=== PATIENT | male | born 1975 | race Hispanic/Latino ===

== ENCOUNTER 2020-05-26 04:04 | Emergency (ER) | payer SELFPAY ==
[~2020-05-26 04:04] MED LIST: ASPI-1026 PO; FENO145T PO; LISI40TA4 PO; MULT-1203 PO; SITA1TAB6 PO
[2020-05-26 05:26] LABS: BASOPHILS % (AUTO) 0.5 % (0.0-5.0); EOSINOPHILS % (AUTO) 1.1 % (0.0-8.0); HEMATOCRIT 42.4 % (42-54); LYMPHOCYTES % (AUTO) 18.2 % (21.0-51.0); MEAN CORPUSCULAR HEMOGLOBIN 29.1 pg (27.0-33.0); MEAN CORPUSCULAR HGB CONC 34.4 g/dL (32.0-36.0); MEAN CORPUSCULAR VOLUME 84.5 fL (79-99); MONOCYTES % (AUTO) 6.7 % (3.0-13.0); NEUTROPHILS % (AUTO) 72.8 % (40.0-77.0); PLATELET COUNT (AUTO) 277 K/uL (130-400); RED BLOOD CELL COUNT(AUTO) 5.02 MIL/uL (4.50-6.20); RED CELL DISTRIBUTION WIDTH 12.5 % (11.0-15.5); WHITE BLOOD COUNT (AUTO) 11.1 K/uL (4.8-10.8)
[2020-05-26 05:26] LABS: APPEARANCE,URINE Clear (CLEAR); BILIRUBIN,URINE Negative (NEGATIVE); COLOR,URINE Yellow (YELLOW); GLUCOSE, URINE (UA) Negative (NEGATIVE); KETONES,URINE Trace mg/dL (NEGATIVE); LEUKOCYTE ESTERASE ,URINE Negative (NEGATIVE); NITRATE,URINE Negative (NEGATIVE); OCCULT BLOOD,URINE Negative (NEGATIVE); PH,URINE 5.5 (5.0-8.0); PROTEIN,URINE Trace mg/dL (NEGATIVE)
[2020-05-26 05:35] LABS: CREATININE 0.8 mg/dL (0.5-1.5); POTASSIUM 3.2 mmol/L (3.5-5.1)
[2020-05-26] MEDS ORDERED: ONDANSETRON HCL 4 MG/2 ML VIAL ONE (05:36)
[2020-05-26] MEDS ORDERED: SODIUM CHLORIDE 0.9% 1000ML 1,000 ML IV ONE (05:37)
[2020-05-26 05:39] LABS: ALBUMIN 4.2 g/dL (3.5-5.0); BILIRUBIN,DIRECT 0.1 mg/dL (0.0-0.3); BILIRUBIN,TOTAL 0.2 mg/dL (0.2-1.0); TOTAL PROTEIN, SERUM 7.6 g/dL (6.0-8.3)
== END 2020-05-26 06:41 | disposition home or self-care (01) ==
LOC: EDH 04:04
DX: M54.5 Low back pain (principal); R10.13 Epigastric pain; E11.9 Type 2 diabetes mellitus without complications; M79.10 Myalgia, unspecified site; E78.00 Pure hypercholesterolemia, unspecified; I10 Essential (primary) hypertension; Z72.0 Tobacco use
CPT/HCPCS: 36415; 71045; 80048; 80076; 81003; 82550; 83690; 84484; 85025; 93005; 96374; 99285; J2405; J7030

== ENCOUNTER 2020-08-09 22:26 | Emergency (ER) | payer OTHER ==
[2020-08-09 23:18] LABS: BASOPHILS % (AUTO) 0.7 % (0.0-5.0); EOSINOPHILS % (AUTO) 0.6 % (0.0-8.0); HEMATOCRIT 44.8 % (42-54); MEAN CORPUSCULAR HEMOGLOBIN 29.7 pg (27.0-33.0); MEAN CORPUSCULAR HGB CONC 34.8 g/dL (32.0-36.0); MEAN CORPUSCULAR VOLUME 85.2 fL (79-99); MONOCYTES % (AUTO) 5.6 % (3.0-13.0); NEUTROPHILS % (AUTO) 70.7 % (40.0-77.0); PLATELET COUNT (AUTO) 281 K/uL (130-400); RED BLOOD CELL COUNT(AUTO) 5.26 MIL/uL (4.50-6.20); RED CELL DISTRIBUTION WIDTH 12.3 % (11.0-15.5); WHITE BLOOD COUNT (AUTO) 8.5 K/uL (4.8-10.8)
[2020-08-09 23:20] LABS: APPEARANCE,URINE Clear (CLEAR); BILIRUBIN,URINE Negative (NEGATIVE); COLOR,URINE Yellow (YELLOW); GLUCOSE, URINE (UA) Negative (NEGATIVE); KETONES,URINE Negative (NEGATIVE); LEUKOCYTE ESTERASE ,URINE Negative (NEGATIVE); NITRATE,URINE Negative (NEGATIVE); OCCULT BLOOD,URINE Negative (NEGATIVE); PH,URINE 7.5 (5.0-8.0); PROTEIN,URINE Negative (NEGATIVE)
[2020-08-09 23:39] LABS: CREATININE 0.7 mg/dL (0.5-1.5); POTASSIUM 4.1 mmol/L (3.5-5.1)
[2020-08-09 23:47] LABS: ALBUMIN 4.3 g/dL (3.5-5.0); BILIRUBIN,TOTAL 0.4 mg/dL (0.2-1.0); TOTAL PROTEIN, SERUM 8.1 g/dL (6.0-8.3)
[2020-08-10] MEDS ORDERED: PANTOPRAZOLE 40 MG/VIAL ONE (00:05)
[2020-08-10] MEDS ORDERED: FAMOTIDINE/PF 20 MG/2 ML VIAL IV ONE (00:06)
[2020-08-10 00:20] LABS: INR 0.94 (0.85-1.15); PROTHROMBIN TIME 10.2 SEC (9.6-11.6)
== END 2020-08-10 02:23 | disposition home or self-care (01) ==
LOC: EDH 22:26
DX: R00.2 Palpitations (principal); R10.9 Unspecified abdominal pain; R11.0 Nausea; I10 Essential (primary) hypertension; E78.00 Pure hypercholesterolemia, unspecified; E11.9 Type 2 diabetes mellitus without complications; Z79.899 Other long term (current) drug therapy; Z88.8 Allergy status to other drugs, medicaments and biological substances; Z87.891 Personal history of nicotine dependence
CPT/HCPCS: 36415; 71045; 80053; 81003; 82550; 83690; 84484 ×2; 85025; 85610; 85730; 93005; 96361; 96374; 96375; 99285; C9113; J3490

== ENCOUNTER 2022-01-07 04:18 | Observation (INO) | payer OTHER ==
[~2022-01-07] VITALS: Ht 175.3 cm; Wt 103.1 kg
[~2022-01-07 04:18] MED LIST changes: -LISI40TA4 PO; +LISI40TA9 PO
[2022-01-07 05:04] LABS: BASOPHILS % (AUTO) 0.3 % (0.0-5.0); EOSINOPHILS % (AUTO) 0.1 % (0.0-8.0); HEMATOCRIT 43.7 % (42-54); LYMPHOCYTES % (AUTO) 12.5 % (21.0-51.0); MEAN CORPUSCULAR HEMOGLOBIN 30.7 pg (27.0-33.0); MEAN CORPUSCULAR HGB CONC 35.9 g/dL (32.0-36.0); MEAN CORPUSCULAR VOLUME 85.4 fL (79-99); MONOCYTES % (AUTO) 5.3 % (3.0-13.0); NEUTROPHILS % (AUTO) 81.3 % (40.0-77.0); PLATELET COUNT (AUTO) 239 K/uL (130-400); RED BLOOD CELL COUNT(AUTO) 5.12 MIL/uL (4.50-6.20); RED CELL DISTRIBUTION WIDTH 12.1 % (11.0-15.5); WHITE BLOOD COUNT (AUTO) 14.8 K/uL (4.8-10.8)
[2022-01-07 05:13] LABS: ALBUMIN 4.1 g/dL (3.5-5.0); BILIRUBIN,TOTAL 0.4 mg/dL (0.2-1.0); CREATININE 0.7 mg/dL (0.5-1.5); POTASSIUM 3.8 mmol/L (3.5-5.1); TOTAL PROTEIN, SERUM 7.1 g/dL (6.0-8.3)
[2022-01-07] MEDS: KETOROLAC 30MG VIAL (30MG/ML) IV SCH ×2 (06:42→19:26)
[2022-01-07 08:11] LABS: CREATINE KINASE, TOTAL 67 U/L (21-232); CRP QUANTITATIVE < 2.00 mg/L (0.00-9.0)
[2022-01-07 09:58] LABS: APPEARANCE,URINE CLEAR (CLEAR); BILIRUBIN,URINE NEGATIVE (NEGATIVE); COLOR,URINE YELLOW (YELLOW); GLUCOSE, URINE (UA) >=1000 mg/dL (NEGATIVE); KETONES,URINE 15 mg/dL (NEGATIVE); LEUKOCYTE ESTERASE ,URINE NEGATIVE (NEGATIVE); NITRATE,URINE NEGATIVE (NEGATIVE); OCCULT BLOOD,URINE TRACE-INTACT (NEGATIVE); PROTEIN,URINE NEGATIVE (NEGATIVE)
[2022-01-07 10:05] LABS: BACTERIA,URINE None Seen /HPF (None Seen); RBC,URINE None Seen /HPF (0-1); WBC,URINE None Seen /HPF (0-1)
[2022-01-07] MEDS ORDERED: ACYC-138 PO (10:51)
[2022-01-07] MEDS ORDERED: PRED20TA3 PO (10:51)
[2022-01-07] MEDS ORDERED: SIME125C81 PO (10:51)
[2022-01-07] MEDS ORDERED: METF-446 PO (10:51)
[2022-01-07] MEDS ORDERED: METO50TA18 PO (10:51)
[2022-01-07] MEDS ORDERED: AEC81 PO (10:51)
[2022-01-07] MEDS ORDERED: LISI40TA9 PO (10:51)
[2022-01-07] MEDS ORDERED: PLAN450C PO (10:51)
[2022-01-07] MEDS ORDERED: IBUP-2071 PO (10:51)
[2022-01-07] MEDS ORDERED: HYDR12.54 PO (10:51)
[2022-01-07] MEDS ORDERED: MORPHINE 2 MG SYG IV PRN (11:30)
[2022-01-07] MEDS ORDERED: ACETAMINOPHEN 325 MG TAB PO PRN ×2 (11:30)
[2022-01-07] MEDS: ZOSYN 3.375GM+NS 50ML 50 ML IV SCH ×2 (13:00→20:54)
[2022-01-07] MEDS ORDERED: INSULIN HUMULIN R 100 UNIT/ML 3ML ONE (13:09)
[2022-01-07] MEDS ORDERED: 0.9%NACL 50ML 50 ML IV ONE (13:09)
[2022-01-07] MEDS ORDERED: INSULIN HUMULIN R 100 UNIT/ML 3ML SQ ONE (13:30)
[2022-01-07 14:45] VITALS: BP 147/87
[2022-01-07] MEDS: METOPROLOL TARTRATE 50 MG TAB PO SCH (16:40)
[2022-01-07] MEDS: INSULIN HUMULIN R 100 UNIT/ML 3ML SQ SCH ×2 (16:47→20:55)
[2022-01-07 20:15] VITALS: BP 138/82
[2022-01-07] MEDS: [UNRECOGNIZED DRUG - REMARK] PO SCH (20:54)
[2022-01-07] MEDS: ACYCLOVIR 800 MG TABLET PO SCH (20:54)
[2022-01-07] MEDS: FAMOTIDINE 20MG VIAL IV SCH (20:54)
[2022-01-07 23:40] VITALS: BP 145/89
[2022-01-08 03:55] VITALS: BP 128/73
[2022-01-08] MEDS: ZOSYN 3.375GM+NS 50ML 50 ML IV SCH ×3 (04:30→20:38)
[2022-01-08 05:31] LABS: BASOPHILS % (AUTO) 0.2 % (0.0-5.0); EOSINOPHILS % (AUTO) 0.1 % (0.0-8.0); HEMATOCRIT 40.6 % (42-54); LYMPHOCYTES % (AUTO) 17.1 % (21.0-51.0); MEAN CORPUSCULAR HEMOGLOBIN 29.8 pg (27.0-33.0); MEAN CORPUSCULAR HGB CONC 34.2 g/dL (32.0-36.0); MEAN CORPUSCULAR VOLUME 86.9 fL (79-99); MONOCYTES % (AUTO) 6.6 % (3.0-13.0); NEUTROPHILS % (AUTO) 75.3 % (40.0-77.0); PLATELET COUNT (AUTO) 230 K/uL (130-400); RED BLOOD CELL COUNT(AUTO) 4.67 MIL/uL (4.50-6.20); RED CELL DISTRIBUTION WIDTH 12.3 % (11.0-15.5); WHITE BLOOD COUNT (AUTO) 13.6 K/uL (4.8-10.8)
[2022-01-08 05:48] LABS: ALBUMIN 3.8 g/dL (3.5-5.0); BILIRUBIN,TOTAL 0.5 mg/dL (0.2-1.0); CREATININE 0.6 mg/dL (0.5-1.5); POTASSIUM 3.6 mmol/L (3.5-5.1); TOTAL PROTEIN, SERUM 6.8 g/dL (6.0-8.3)
[2022-01-08] MEDS: INSULIN HUMULIN R 100 UNIT/ML 3ML SQ SCH ×4 (06:24→20:48)
[2022-01-08 07:30] VITALS: BP 127/68
[2022-01-08] MEDS: METOPROLOL TARTRATE 50 MG TAB PO SCH ×2 (08:00→17:00)
[2022-01-08] MEDS: [UNRECOGNIZED DRUG - REMARK] PO SCH ×2 (09:00→19:56)
[2022-01-08] MEDS: SIMETHICONE 80 MG TAB.CHEW PO SCH (09:00)
[2022-01-08] MEDS: FAMOTIDINE 20MG VIAL IV SCH ×2 (09:41→20:38)
[2022-01-08] MEDS: HYDROCHLOROTHIAZIDE 25 MG TABLET PO SCH (09:41)
[2022-01-08] MEDS: PREDNISONE 20 MG TABLET PO SCH (09:42)
[2022-01-08] MEDS: ACYCLOVIR 800 MG TABLET PO SCH ×2 (09:42→19:56)
[2022-01-08] MEDS: LISINOPRIL 40 MG TABLET PO SCH (09:43)
[2022-01-08 11:00] VITALS: BP 130/82
[2022-01-08 16:00] VITALS: BP 125/77
[2022-01-08] MEDS ORDERED: 0.9%NACL 1000ML 1,000 ML IV ONE (19:30)
[2022-01-08 20:02] VITALS: BP 138/87
[2022-01-08 23:48] VITALS: BP 148/89
[2022-01-09 04:17] VITALS: BP 136/80
[2022-01-09] MEDS: INSULIN HUMULIN R 100 UNIT/ML 3ML SQ SCH ×2 (06:14→11:36)
[2022-01-09] MEDS: KETOROLAC 30MG VIAL (30MG/ML) IV SCH (06:15)
[2022-01-09 06:24] LABS: BASOPHILS % (AUTO) 0.3 % (0.0-5.0); EOSINOPHILS % (AUTO) 0.1 % (0.0-8.0); HEMATOCRIT 41.4 % (42-54); LYMPHOCYTES % (AUTO) 26.4 % (21.0-51.0); MEAN CORPUSCULAR HEMOGLOBIN 29.9 pg (27.0-33.0); MEAN CORPUSCULAR HGB CONC 34.8 g/dL (32.0-36.0); MEAN CORPUSCULAR VOLUME 86.1 fL (79-99); MONOCYTES % (AUTO) 6.8 % (3.0-13.0); NEUTROPHILS % (AUTO) 65.7 % (40.0-77.0); PLATELET COUNT (AUTO) 239 K/uL (130-400); RED BLOOD CELL COUNT(AUTO) 4.81 MIL/uL (4.50-6.20); RED CELL DISTRIBUTION WIDTH 12.2 % (11.0-15.5); WHITE BLOOD COUNT (AUTO) 12.1 K/uL (4.8-10.8)
[2022-01-09] MEDS: ZOSYN 3.375GM+NS 50ML 50 ML IV SCH (06:36)
[2022-01-09 06:37] LABS: CREATININE 0.7 mg/dL (0.5-1.5); POTASSIUM 3.6 mmol/L (3.5-5.1)
[2022-01-09 07:30] VITALS: BP 139/85
[2022-01-09] MEDS: ACYCLOVIR 800 MG TABLET PO SCH (08:43)
[2022-01-09] MEDS: LISINOPRIL 40 MG TABLET PO SCH (08:44)
[2022-01-09] MEDS: METOPROLOL TARTRATE 50 MG TAB PO SCH (08:44)
[2022-01-09] MEDS: HYDROCHLOROTHIAZIDE 25 MG TABLET PO SCH (08:44)
[2022-01-09] MEDS: FAMOTIDINE 20MG VIAL IV SCH (08:44)
[2022-01-09] MEDS: [UNRECOGNIZED DRUG - REMARK] PO SCH (08:45)
[2022-01-09] MEDS: SIMETHICONE 80 MG TAB.CHEW PO SCH (08:45)
[2022-01-09] MEDS: PREDNISONE 20 MG TABLET PO SCH (08:45)
[2022-01-09 11:00] VITALS: BP 139/85
[2022-01-09] MEDS ORDERED: AMOX-426 PO (12:27)
== END 2022-01-09 13:30 | disposition home or self-care (01) ==
LOC: EDH 04:18 → EDHIP 04:19 → UNDOADMOB 11:31 → 3AH 14:54
PROVIDERS: ADMIT Internal Medicine; ATTEND Internal Medicine
DX: A08.2 Adenoviral enteritis (principal); K52.9 Noninfective gastroenteritis and colitis, unspecified; G51.0 Bell's palsy; N28.89 Other specified disorders of kidney and ureter; R10.84 Generalized abdominal pain; I10 Essential (primary) hypertension; E11.65 Type 2 diabetes mellitus with hyperglycemia; E78.5 Hyperlipidemia, unspecified; C64.2 Malignant neoplasm of left kidney, except renal pelvis; K80.20 Calculus of gallbladder without cholecystitis without obstruction; F17.210 Nicotine dependence, cigarettes, uncomplicated; Z79.82 Long term (current) use of aspirin; Z79.84 Long term (current) use of oral hypoglycemic drugs; Z79.899 Other long term (current) drug therapy; Z98.890 Other specified postprocedural states
CPT/HCPCS: 36415 ×3; 70450; 74176; 76705; 76770; 80048; 80053 ×2; 81001; 82550; 82948 ×9; 83036; 83690; 83880; 84484; 85025 ×3; 85651; 86140; 93005; 96365; 96366 ×4; 96372 ×3; 96375; 96376 ×3; 99285; G0378 ×48; J1815 ×7; J1885; J2543 ×6; J3490 ×4; J7030